=== PATIENT | female | born 1960 | race Caucasian/White ===

== ENCOUNTER 2018-06-25 09:58 | Outpatient (CLI) | payer BC | END 2018-06-25 09:59 | disposition home or self-care (01) | LOC: LAB.F 09:58 | PROVIDERS: ATTEND Obstetrics & Gynecology | DX: E22.1 Hyperprolactinemia (principal); D35.2 Benign neoplasm of pituitary gland | CPT/HCPCS: 36415; 84146 ==

== ENCOUNTER 2019-06-23 13:03 | Outpatient (CLI) | payer BC | END 2019-06-23 13:04 | disposition home or self-care (01) | LOC: LAB 13:03 | PROVIDERS: ATTEND Obstetrics & Gynecology | DX: E22.1 Hyperprolactinemia (principal) | CPT/HCPCS: 36415; 84146 ==

== ENCOUNTER 2019-09-22 09:50 | Outpatient (CLI) | payer BC ==
[2019-09-22 15:35] LABS: BASOPHILS % (AUTO) 0.5 %; EOSINOPHILS # (AUTO) 0.2 10^3/uL (0.0-0.7); EOSINOPHILS % (AUTO) 5.9 %; HGB - HEMOGLOBIN 13.1 g/dL (12.0-16.0); LYMPHOCYTES # (AUTO) 1.3 10^3/uL (1.5-3.5); LYMPHOCYTES % (AUTO) 32.8 %; MEAN CORPUSCULAR HEMOGLOBIN 29.8 pg (27.0-31.0); MEAN CORPUSCULAR HGB CONC 32.3 g/dL (32.0-36.0); MEAN CORPUSCULAR VOLUME 92.3 fL (81.0-99.0); MEAN PLATELET VOLUME 11.4 fL (7.9-10.8); MONOCYTES # (AUTO) 0.3 10^3/uL (0.0-1.0); MONOCYTES % (AUTO) 7.9 %; NEUTROPHILS # (AUTO) 2.1 10^3/uL (1.5-6.6); NEUTROPHILS % (AUTO) 52.6 %; PLT - PLATELET COUNT 232 10^3/uL (130-450); RED BLOOD COUNT 4.39 10^6/uL (4.20-5.40); WHITE BLOOD COUNT 3.9 x10^3/uL (4.8-10.8)
[2019-09-22 16:12] LABS: THYROID STIMULATING HORMONE 1.55 uIU/mL (0.34-5.60)
[2019-09-22 16:17] LABS: FERRITIN 69.4 ng/mL (11.0-306.8)
[2019-09-22 16:18] LABS: PROLACTIN 13.97 ng/mL
[2019-09-22 16:33] LABS: % IRON SATURATION 21 % (20-50); ALBUMIN 4.3 g/dL (3.2-5.5); ALBUMIN/GLOBULIN RATIO 1.7 (1.0-2.2); ALKALINE PHOSPHATASE 54 IU/L (42-121); ALT ALANINE AMINOTRANSFERASE 20 IU/L (10-60); AST ASPARTATE AMINOTRANSFERASE 20 IU/L (10-42); BILIRUBIN,TOTAL 0.7 mg/dL (0.2-1.0); BUN - BLOOD UREA NITROGEN 13 mg/dL (6-20); CALCIUM 8.7 mg/dL (8.5-10.3); CARBON DIOXIDE - CO2 25 mmol/L (21-32); CHLORIDE 102 mmol/L (101-111); CHOL/HDL RATIO 1.9 (<4.4); CHOLESTEROL 252 mg/dL; CREATININE 0.7 mg/dL (0.4-1.0); GLUCOSE 99 mg/dL (70-100); HDL CHOLESTEROL 131 mg/dL; IRON 73 ug/dL (28-170); SODIUM 134 mmol/L (135-145); TOTAL IRON BINDING CAPACITY 346 ug/dL (250-450); TOTAL PROTEIN 6.8 g/dL (6.7-8.2); TRANSFERRIN 247 mg/dL (192-382)
== END 2019-09-22 09:51 | disposition home or self-care (01) ==
LOC: LAB.S 09:50
PROVIDERS: ATTEND Registered Nurse
DX: Z13.228 Encounter for screening for other metabolic disorders (principal); Z13.0 Encounter for screening for diseases of the blood and blood-forming organs and certain disorders involving the immune mechanism; Z91.89 Other specified personal risk factors, not elsewhere classified; E23.0 Hypopituitarism; Z13.29 Encounter for screening for other suspected endocrine disorder
CPT/HCPCS: 36415; 80053; 80061; 82728; 83516; 83540; 83721; 84146; 84443; 84466; 85025

== ENCOUNTER 2019-12-15 09:46 | Outpatient (CLI) | payer BC ==
--- NOTE | 2019-12-15 12:18 | CT Report ---
PROCEDURE: Low Dose Lung Cancer Screen INDICATIONS: SMOKER TECHNIQUE: Noncontrast low-dose 5 mm thick sections acquired from the pulmonary apices to the posterior costophr enic angles. 7 mm thick coronal and sagittal MIP reformats were then acquired. For radiation dose r eduction, the following was used: automated exposure control, adjustment of mA and/or kV according t o patient size. COMPARISON: None. FINDINGS: Image quality: Excellent. Lungs and pleura: No effusions or consolidations. No masses or nodules. Mediastinum: Heart size is normal. No pericardial effusion. No mediastinal adenopathy by size crit eria. Thoracic aorta and central pulmonary arteries are normal in size. Esophagus is normal in airam edgard. No hiatal hernia. Bones and chest wall: No suspicious bony lesions. No vertebral body compression fractures. No axil kasia or supraclavicular adenopathy by size criteria. The thyroid is normal in size. Abdomen: Visualized upper abdomen solid organs and bowel loops appear normal in the absence of contr ast. IMPRESSION: 1. Lungs are clear. Lung Rads 1: recommend annual CT screening. Reviewed by: Alem Justice MD on 12/15/2019 12:17 PM PDT Approved by: Alem Justice MD on 12/15/2019 12:17 PM PDT Station ID: [id number]
== END 2019-12-15 09:47 | disposition home or self-care (01) ==
LOC: DI 09:46
PROVIDERS: ATTEND Registered Nurse
DX: Z12.2 Encounter for screening for malignant neoplasm of respiratory organs (principal); Z87.891 Personal history of nicotine dependence
CPT/HCPCS: G0297 ×2

== ENCOUNTER 2020-03-04 14:52 | Outpatient (CLI) | payer BC ==
[2020-03-04 20:06] LABS: BASOPHILS # (AUTO) 0.1 10^3/uL (0.0-0.1); BASOPHILS % (AUTO) 0.9 %; EOSINOPHILS # (AUTO) 0.2 10^3/uL (0.0-0.7); EOSINOPHILS % (AUTO) 3.5 %; HGB - HEMOGLOBIN 14.4 g/dL (12.0-16.0); LYMPHOCYTES # (AUTO) 1.6 10^3/uL (1.5-3.5); LYMPHOCYTES % (AUTO) 30.1 %; MEAN CORPUSCULAR HEMOGLOBIN 30.6 pg (27.0-31.0); MEAN CORPUSCULAR HGB CONC 32.2 g/dL (32.0-36.0); MEAN CORPUSCULAR VOLUME 95.1 fL (81.0-99.0); MEAN PLATELET VOLUME 11.3 fL (7.9-10.8); MONOCYTES # (AUTO) 0.4 10^3/uL (0.0-1.0); MONOCYTES % (AUTO) 7.2 %; NEUTROPHILS # (AUTO) 3.1 10^3/uL (1.5-6.6); NEUTROPHILS % (AUTO) 57.9 %; PLT - PLATELET COUNT 244 10^3/uL (130-450); RED CELL DISTRIBUTION WIDTH 13.9 % (12.0-15.0); WHITE BLOOD COUNT 5.4 x10^3/uL (4.8-10.8)
[2020-03-04 20:26] LABS: ALBUMIN 4.8 g/dL (3.2-5.5); BILIRUBIN,DIRECT 0.1 mg/dL (0.1-0.5); BILIRUBIN,TOTAL 0.9 mg/dL (0.2-1.0); CREATININE 0.8 mg/dL (0.4-1.0); TOTAL PROTEIN 7.9 g/dL (6.7-8.2)
== END 2020-03-04 14:53 | disposition home or self-care (01) ==
LOC: LAB.S 14:52
PROVIDERS: ATTEND Podiatrist
DX: B35.1 Tinea unguium (principal)
CPT/HCPCS: 36415; 80076; 82565; 84520; 85025

== ENCOUNTER 2020-03-24 14:04 | Outpatient (CLI) | payer BC | END 2020-03-24 14:05 | disposition home or self-care (01) | LOC: LAB.S 14:04 | PROVIDERS: ATTEND Obstetrics & Gynecology | DX: E22.1 Hyperprolactinemia (principal) | CPT/HCPCS: 36415; 84146 ==

== ENCOUNTER 2020-10-19 09:02 | Outpatient (CLI) | payer BC | END 2020-10-19 09:03 | disposition home or self-care (01) | LOC: LAB.S 09:02 | PROVIDERS: ATTEND Obstetrics & Gynecology | DX: Z86.39 Personal history of other endocrine, nutritional and metabolic disease (principal) | CPT/HCPCS: 36415; 84146 ==

== ENCOUNTER 2020-11-15 10:06 | Outpatient (CLI) | payer BC ==
[2020-11-15 15:36] LABS: THYROID STIMULATING HORMONE 2.43 uIU/mL (0.34-5.60)
[2020-11-15 16:04] LABS: FOLLICLE STIMULATING HORMONE 36.83 mIU/mL
== END 2020-11-15 10:07 | disposition home or self-care (01) ==
LOC: LAB.S 10:06
PROVIDERS: ATTEND Obstetrics & Gynecology
DX: N95.1 Menopausal and female climacteric states (principal)
CPT/HCPCS: 36415; 82670; 83001; 84270; 84402; 84403; 84443

== ENCOUNTER 2021-02-14 10:59 | Outpatient (CLI) | payer BC | END 2021-02-14 11:00 | disposition home or self-care (01) | LOC: LAB.S 10:59 | PROVIDERS: ATTEND Obstetrics & Gynecology | DX: E22.1 Hyperprolactinemia (principal) | CPT/HCPCS: 36415; 84146 ==

== ENCOUNTER 2021-09-01 09:22 | Outpatient (CLI) | payer BC ==
[2021-09-01 14:55] LABS: ALBUMIN 4.4 g/dL (3.2-5.5); ALBUMIN/GLOBULIN RATIO 1.5 (1.0-2.2); BILIRUBIN,TOTAL 0.6 mg/dL (0.2-1.0); CALCIUM 9.4 mg/dL (8.5-10.3); CREATININE 0.8 mg/dL (0.4-1.0); POTASSIUM 4.3 mmol/L (3.5-5.0); TOTAL PROTEIN 7.4 g/dL (6.7-8.2)
== END 2021-09-01 09:23 | disposition home or self-care (01) ==
LOC: LAB.S 09:22
PROVIDERS: ATTEND Nurse Practitioner Family
DX: D35.2 Benign neoplasm of pituitary gland (principal)
CPT/HCPCS: 36415; 80053; 84146

== ENCOUNTER 2021-10-13 10:16 | Outpatient (CLI) | payer BC ==
--- NOTE | 2021-10-14 12:34 | Mammography Report ---
BILATERAL DIGITAL SCREENING MAMMOGRAM 3D/2D: 10/13/2021 CLINICAL: Routine screening. Comparison is made to exams dated: 08/25/2016 mammogram - [facility] and 10/06/2014 mammogram - [facility]. There are scattered fibroglandular elements in both breasts. No significant masses, calcifications, or other findings are seen in either breast. There has been no significant interval change. IMPRESSION: NEGATIVE There is no mammographic evidence of malignancy. A 1 year screening mammogram is recommended. Based on the Tyrer Cuzick model (a risk assessment model) the patients lifetime risk is 7.8% and her 10 year risk is 3.0%. According to the ACR, ACS, and NCCN guidelines, an annual breast MRI exam harika g with mammogram is recommended if the patients lifetime risk is 20% or greater. This exam was interpreted at Station ID: [id number]. NOTE: For mammograms, a report in lay terms will be sent to the patient. Approximately 15% of breast malignancies will not be visualized mammographically. In the management of a palpable breast mass, a negative mammogram must not discourage biopsy of a clinically suspicious lesion. Electronically Signed By: Francisco Wagner acr/penrad:10/13/2021 11:06:22 ACR BI-RADS Category 1: Negative 3341F PARENCHYMAL PATTERN: (A) - The breast(s) demonstrate(s) scattered fibroglandular densities. BI-RADS CATEGORY: (1) - 1 RECOMMENDATION: (ANNUAL) - Recommend routine annual screening mammography. [id number] 1 year screening LATERALITY: (B)
== END 2021-10-13 10:17 | disposition home or self-care (01) ==
LOC: DI 10:16
PROVIDERS: ATTEND Nurse Practitioner Family
DX: Z12.31 Encounter for screening mammogram for malignant neoplasm of breast (principal)

== ENCOUNTER 2022-05-24 09:28 | Outpatient (CLI) | payer BC ==
[2022-05-24 15:23] LABS: THYROID STIMULATING HORMONE 1.87 uIU/mL (0.34-5.60)
[2022-05-24 15:27] LABS: PROLACTIN 11.94 ng/mL
== END 2022-05-24 09:29 | disposition home or self-care (01) ==
LOC: LAB.S 09:28
PROVIDERS: ATTEND Obstetrics & Gynecology
DX: Z01.419 Encounter for gynecological examination (general) (routine) without abnormal findings (principal); E22.1 Hyperprolactinemia
CPT/HCPCS: 36415; 84146; 84443

== ENCOUNTER 2022-11-08 09:29 | Outpatient (CLI) | payer BC ==
[2022-11-08 14:23] LABS: BASOPHILS % (AUTO) 0.6 %; EOSINOPHILS # (AUTO) 0.2 10^3/uL (0.0-0.7); EOSINOPHILS % (AUTO) 4.1 %; HCT - HEMATOCRIT 43.6 % (37.0-47.0); LYMPHOCYTES # (AUTO) 1.2 10^3/uL (1.5-3.5); LYMPHOCYTES % (AUTO) 25.1 %; MEAN CORPUSCULAR HEMOGLOBIN 29.4 pg (27.0-31.0); MEAN CORPUSCULAR HGB CONC 32.1 g/dL (32.0-36.0); MEAN CORPUSCULAR VOLUME 91.6 fL (81.0-99.0); MEAN PLATELET VOLUME 11.4 fL (7.9-10.8); MONOCYTES # (AUTO) 0.4 10^3/uL (0.0-1.0); MONOCYTES % (AUTO) 8.2 %; NEUTROPHILS % (AUTO) 61.8 %; PLT - PLATELET COUNT 240 10^3/uL (130-450); RED BLOOD COUNT 4.76 10^6/uL (4.20-5.40); RED CELL DISTRIBUTION WIDTH 14.4 % (12.0-15.0); WHITE BLOOD COUNT 4.9 x10^3/uL (4.8-10.8)
[2022-11-08 14:46] LABS: ALBUMIN 4.6 g/dL (3.2-5.5); ALBUMIN/GLOBULIN RATIO 2.1 (1.0-2.2); ALKALINE PHOSPHATASE 55 IU/L (42-121); ALT ALANINE AMINOTRANSFERASE 12 IU/L (10-60); AST ASPARTATE AMINOTRANSFERASE 12 IU/L (10-42); BILIRUBIN,TOTAL 0.7 mg/dL (0.2-1.0); BUN - BLOOD UREA NITROGEN 13 mg/dL (6-20); CALCIUM 9.6 mg/dL (8.5-10.3); CARBON DIOXIDE - CO2 28 mmol/L (21-32); CHLORIDE 106 mmol/L (101-111); CHOL/HDL RATIO 2.3 (<4.4); CHOLESTEROL 225 mg/dL; CREATININE 0.8 mg/dL (0.6-1.3); GFR - MDRD 73 (>89); GLUCOSE 97 mg/dL (74-104); HDL CHOLESTEROL 99 mg/dL; POTASSIUM 4.1 mmol/L (3.5-4.5); SODIUM 138 mmol/L (135-145); TOTAL PROTEIN 6.8 g/dL (6.4-8.9); TRIGLYCERIDES 32 mg/dL (48-352)
== END 2022-11-08 09:30 | disposition home or self-care (01) ==
LOC: LAB.S 09:29
PROVIDERS: ATTEND Obstetrics & Gynecology
DX: Z01.419 Encounter for gynecological examination (general) (routine) without abnormal findings (principal)
CPT/HCPCS: 36415; 80053; 80061; 82306; 83721; 85025

== ENCOUNTER 2023-07-16 08:26 | Outpatient (CLI) | payer BC | END 2023-07-16 08:27 | disposition home or self-care (01) | LOC: LAB.S 08:26 | PROVIDERS: ATTEND Obstetrics & Gynecology | DX: E22.1 Hyperprolactinemia (principal) | CPT/HCPCS: 36415; 84146 ==